=== PATIENT | female | born 1995 | race Two or more races ===

== ENCOUNTER 2020-11-26 11:31 | Emergency (ER) | payer BC ==
[~2020-11-26] VITALS: Ht 149.9 cm; Wt 59.0 kg
--- NOTE | 2020-11-26 11:42 | NUR ---
to er bed 1, c/o arm and facial numbness 1 hr [employer], migraine started yesterday, a/ox4, changed into a gown, attached to monitor.
--- NOTE | 2020-11-26 11:48 | NUR ---
AT BEDSIDE FOR EVAL
[2020-11-26] MEDS ORDERED: LORA-259 PO (11:55)
[2020-11-26 12:04] VITALS: BP 135/98
== END 2020-11-26 12:05 | disposition home or self-care (01) ==
LOC: ER 11:31
DX: R20.0 Anesthesia of skin (principal); G43.909 Migraine, unspecified, not intractable, without status migrainosus; Z79.899 Other long term (current) drug therapy